=== PATIENT | female | born 1945 | race Caucasian/White ===

== ENCOUNTER → 2020-12-06 | Outpatient (CLI) | payer OTHER ==
[2020-12-06 12:00] LABS: Urine WBC None Seen /hpf (0 - 5)
[2020-12-06 12:07] LABS: Basophils # (auto) 0 10 ^3/uL (0-0.2); Basophils % (auto) 0.6 % (0.0-2.0); Eosinophils # (auto) 0.2 10 ^3/uL (0-0.8); Eosinophils % (auto) 2.5 % (0.0-7.0); Hematocrit 39.6 % (36.0-46.0); Hemoglobin 13.8 g/dL (12.2-16.2); Lymphocytes # (auto) 2.4 10 ^3/uL (0.4-5.4); Lymphocytes % (auto) 36.7 % (10.0-50.0); Mean Corpuscular Hemoglobin 32.6 pg (28.0-32.0); Mean Corpuscular Hgb Conc. 34.9 g/dL (32.0-36.0); Mean Corpuscular Volume 93.5 fL (80.0-100.0); Monocytes # (auto) 0.5 10 ^3/uL (0-1.3); Monocytes % (auto) 7.4 % (0.0-12.0); Neutrophils # (auto) 3.5 10 ^3/uL (1.6-8.6); Neutrophils % (auto) 52.8 % (37.0-80.0); Nucleated Red Blood Cells % 0.1 %; Platelet Count (auto) 202 10^3/uL (140-450); Red Blood Cells 4.23 10^6/uL (4.0-5.20); Red Cell Distribution Width 12.6 % (11.8-14.3); White Blood Cell 6.7 10^3/uL (4.4-10.8)
[2020-12-06 12:26] LABS: Urine Bacteria NONE SEEN /hpf (None Seen); Urine Blood Negative /uL (Negative); Urine Specific Gravity 1.005 (1.001-1.035)
[2020-12-06 12:54] LABS: Albumin 3.9 g/dL (3.4-5.0); Calcium 9.6 mg/dL (8.5-10.1); Potassium 4.2 mmol/L (3.5-5.1)
[2020-12-06 13:00] LABS: BUN/Creatinine Ratio 30.4; Bilirubin, Total 0.6 mg/dL (0.2-1.0); Total Protein 7.9 g/dL (6.4-8.2)
== END | disposition home or self-care (01) ==
LOC: LAB 11:49
PROVIDERS: ATTEND Student in an Organized Health Care Education/Training Program
DX: I10 Essential (primary) hypertension (principal); Z12.11 Encounter for screening for malignant neoplasm of colon
CPT/HCPCS: 36415; 80053; 80061; 81001; 84443; 85025

== ENCOUNTER 2021-04-07 10:27 | Inpatient (IN) | payer OTHER ==
[~2021-04-07] VITALS: Ht 167.6 cm; Wt 82.5 kg
[2021-04-07] MEDS ORDERED: HYDROmorphone HCL 2 MG/ML VL IV ONE (12:30)
[2021-04-07] MEDS ORDERED: ONDANSETRON HCL 4 MG/2 ML VIAL IV ONE (12:30)
[2021-04-07] MEDS ORDERED: SODIUM CHLORIDE 0.9% 1,000 ML IV ONE (12:30)
[2021-04-07 13:12] LABS: Albumin 3.8 g/dL (3.4-5.0); Calcium 9.3 mg/dL (8.5-10.1); Magnesium 2.6 mg/dL (1.6-2.6); Potassium 4.1 mmol/L (3.5-5.1)
[2021-04-07 13:17] LABS: BUN/Creatinine Ratio 29.9; Bilirubin, Total 0.5 mg/dL (0.2-1.0); Total Protein 7.4 g/dL (6.4-8.2)
[2021-04-07] MEDS ORDERED: TEMAZEPAM 15 MG CAP PO PRN (13:30)
[2021-04-07] MEDS ORDERED: MORPHINE SULFATE INJECTION 2 MG/ML SYRG IV PRN (13:30)
[2021-04-07] MEDS ORDERED: NITROGLYCERIN 0.4 MG SL TAB SL PRN (13:30)
[2021-04-07] MEDS ORDERED: ONDANSETRON HCL 4 MG/2 ML VIAL IV PRN (13:30)
[2021-04-07] MEDS ORDERED: LACTULOSE 20Gm/30ML SOLN PO PRN (13:30)
[2021-04-07 13:42] LABS: Basophils # (auto) 0 10 ^3/uL (0-0.2); Basophils % (auto) 0.2 % (0.0-2.0); Eosinophils # (auto) 0 10 ^3/uL (0-0.8); Eosinophils % (auto) 0.1 % (0.0-7.0); Hematocrit 40.7 % (36.0-46.0); Hemoglobin 13.8 g/dL (12.2-16.2); Lymphocytes # (auto) 1.2 10 ^3/uL (0.4-5.4); Lymphocytes % (auto) 5.6 % (10.0-50.0); Mean Corpuscular Hemoglobin 31.1 pg (28.0-32.0); Mean Corpuscular Hgb Conc. 33.9 g/dL (32.0-36.0); Mean Corpuscular Volume 91.7 fL (80.0-100.0); Monocytes # (auto) 0.8 10 ^3/uL (0-1.3); Neutrophils # (auto) 18.9 10 ^3/uL (1.6-8.6); Neutrophils % (auto) 90.1 % (37.0-80.0); Red Blood Cells 4.44 10^6/uL (4.0-5.20); Red Cell Distribution Width 12.6 % (11.8-14.3)
[2021-04-07 13:54] LABS: Partial Thromboplastin Time 22.8 sec (23.0-31.2)
[2021-04-07 14:08] LABS: Urine Amorphous Crystal FEW /hpf (None Seen); Urine Bacteria NONE SEEN /hpf (None Seen); Urine Blood Negative /uL (Negative); Urine Mucus FEW (None Seen); Urine Specific Gravity 1.024 (1.001-1.035); Urine WBC 2 /hpf (0 - 5)
[2021-04-07] MEDS: SODIUM CHLORIDE 0.9% 1,000 ML IV SCH (14:50)
[2021-04-07] MEDS: traMADol HCL 50 MG TAB PO PRN ×2 (15:37→22:45)
[2021-04-07 17:00] VITALS: BP 160/68
[2021-04-07] MEDS ORDERED: QUIN20TA35 PO (18:41)
[2021-04-07] MEDS ORDERED: ATOR20TA PO (18:41)
[2021-04-07] MEDS ORDERED: CHOL200021 PO (18:41)
[2021-04-07 22:25] VITALS: BP 142/67
[2021-04-08] MEDS: SODIUM CHLORIDE 0.9% 1,000 ML IV SCH ×3 (02:47→20:10)
[2021-04-08 05:25] VITALS: BP 132/63
[2021-04-08] MEDS: traMADol HCL 50 MG TAB PO PRN ×2 (05:32→17:30)
[2021-04-08 09:00] VITALS: BP 143/58
[2021-04-08] MEDS: MORPHINE SULFATE INJECTION 2 MG/ML SYRG IV PRN (09:00)
[2021-04-08] MEDS: PANTOPRAZOLE 40 MG TAB PO SCH (10:00)
[2021-04-08 13:00] VITALS: BP 149/84
[2021-04-08 17:00] VITALS: BP 148/69
[2021-04-08 22:00] VITALS: BP 151/67
[2021-04-08] MEDS: ATORVASTATIN 20 MG TAB PO SCH (22:08)
[2021-04-09 05:00] VITALS: BP 160/74
[2021-04-09] MEDS: SODIUM CHLORIDE 0.9% 1,000 ML IV SCH ×2 (06:25→08:28)
[2021-04-09] MEDS: MORPHINE SULFATE INJECTION 2 MG/ML SYRG IV PRN ×2 (08:22→18:39)
[2021-04-09] MEDS: LACTATED RINGER'S 1,000 ML IV SCH ×3 (08:27→16:42)
[2021-04-09 08:40] LABS: Basophils # (auto) 0 10 ^3/uL (0-0.2); Basophils % (auto) 0.2 % (0.0-2.0); Eosinophils # (auto) 0.2 10 ^3/uL (0-0.8); Eosinophils % (auto) 1.6 % (0.0-7.0); Hematocrit 33.6 % (36.0-46.0); Hemoglobin 11.6 g/dL (12.2-16.2); Lymphocytes # (auto) 1.1 10 ^3/uL (0.4-5.4); Lymphocytes % (auto) 9.6 % (10.0-50.0); Mean Corpuscular Hemoglobin 31.7 pg (28.0-32.0); Mean Corpuscular Hgb Conc. 34.5 g/dL (32.0-36.0); Mean Corpuscular Volume 91.8 fL (80.0-100.0); Monocytes # (auto) 0.8 10 ^3/uL (0-1.3); Monocytes % (auto) 6.4 % (0.0-12.0); Neutrophils # (auto) 9.6 10 ^3/uL (1.6-8.6); Neutrophils % (auto) 82.2 % (37.0-80.0); Red Blood Cells 3.66 10^6/uL (4.0-5.20); Red Cell Distribution Width 12.5 % (11.8-14.3); White Blood Cell 11.7 10^3/uL (4.4-10.8)
[2021-04-09] MEDS: PANTOPRAZOLE 40 MG TAB PO SCH (08:42)
[2021-04-09] MEDS: LISINOPRIL 20 MG TAB PO SCH (08:42)
[2021-04-09] MEDS: CHOLECALCIFEROL (VITD3) 2,000 UNIT CAP/TAB PO SCH (08:42)
[2021-04-09 09:00] VITALS: BP 167/76
[2021-04-09] MEDS ORDERED: QUINAPRIL HCL 10 MG TAB PO SCH (10:00)
[2021-04-09] MEDS ORDERED: LISINOPRIL 10 MG TAB PO SCH (10:00)
[2021-04-09] MEDS ORDERED: ceFAZolin 1GM/50ML 100 ML IV ONE (11:54)
[2021-04-09] MEDS ORDERED: MIDAZOLAM HCL 2MG/2ML 2ml VIAL (1mg/ml) ONE (12:52)
[2021-04-09] MEDS ORDERED: fentaNYL CITRATE 100 MCG/2 ML VL ONE (12:52)
[2021-04-09] MEDS ORDERED: BUPIVACAINE 0.25% INJ 50ML VIAL ONE (14:00)
[2021-04-09] MEDS ORDERED: ONDANSETRON HCL 4 MG/2 ML VIAL IV PRN (14:30)
[2021-04-09] MEDS: ceFAZolin 1GM/50ML 50 ML IV SCH ×2 (15:37→20:12)
[2021-04-09 17:00] VITALS: BP 131/61
[2021-04-09] MEDS: FERROUS SULFATE 325mg EC TAB PO SCH (17:46)
[2021-04-09] MEDS: ATORVASTATIN 20 MG TAB PO SCH (20:55)
[2021-04-09] MEDS: traMADol HCL 50 MG TAB PO PRN (20:55)
[2021-04-09 22:00] VITALS: BP 116/47
[2021-04-10] MEDS: LACTATED RINGER'S 1,000 ML IV SCH (00:15)
[2021-04-10] MEDS: ceFAZolin 1GM/50ML 50 ML IV SCH (02:51)
[2021-04-10 05:00] VITALS: BP 129/57
[2021-04-10] MEDS: traMADol HCL 50 MG TAB PO PRN ×3 (06:06→21:26)
[2021-04-10 06:08] LABS: Hematocrit 26.7 % (36.0-46.0); Hemoglobin 9.3 g/dL (12.2-16.2)
[2021-04-10 06:25] LABS: Albumin 2.3 g/dL (3.4-5.0)
[2021-04-10 06:28] LABS: BUN/Creatinine Ratio 36.6; Bilirubin, Total 0.5 mg/dL (0.2-1.0)
[2021-04-10] MEDS: FERROUS SULFATE 325mg EC TAB PO SCH ×3 (08:05→18:00)
[2021-04-10 09:00] VITALS: BP 146/60
[2021-04-10] MEDS: PANTOPRAZOLE 40 MG TAB PO SCH (09:22)
[2021-04-10] MEDS: CHOLECALCIFEROL (VITD3) 2,000 UNIT CAP/TAB PO SCH (09:22)
[2021-04-10] MEDS: LISINOPRIL 20 MG TAB PO SCH (09:23)
[2021-04-10] MEDS ORDERED: MULTIPLE VITAMIN TAB PO SCH (10:00)
[2021-04-10] MEDS ORDERED: ENOXAPARIN SOD 40 MG/0.4 ML SYRINGE SC SCH (10:00)
[2021-04-10] MEDS: MORPHINE SULFATE INJECTION 2 MG/ML SYRG IV PRN (10:59)
[2021-04-10 12:57] VITALS: BP 105/51
[2021-04-10 17:00] VITALS: BP 130/74
[2021-04-10] MEDS: ATORVASTATIN 20 MG TAB PO SCH (21:25)
[2021-04-10 22:00] VITALS: BP 106/48
[2021-04-11 05:00] VITALS: BP 116/55
[2021-04-11] MEDS: traMADol HCL 50 MG TAB PO PRN (06:58)
[2021-04-11 07:27] LABS: Hemoglobin 8.7 g/dL (12.2-16.2)
[2021-04-11] MEDS: FERROUS SULFATE 325mg EC TAB PO SCH (08:00)
[2021-04-11 09:00] VITALS: BP 109/50
[2021-04-11] MEDS: LISINOPRIL 20 MG TAB PO SCH (09:44)
[2021-04-11 13:00] VITALS: BP 112/57
[2021-04-11 17:00] VITALS: BP 120/53
[2021-04-11] MEDS: ATORVASTATIN 20 MG TAB PO SCH (21:22)
[2021-04-11 22:00] VITALS: BP 118/52
[2021-04-12] VITALS (7 sets, daily range): BP systolic 110–122; BP diastolic 56–66
[2021-04-12 06:48] LABS: Hemoglobin 8.1 g/dL (12.2-16.2)
[2021-04-12 06:50] LABS: Hematocrit 22.6 % (36.0-46.0)
[2021-04-12] MEDS: LISINOPRIL 20 MG TAB PO SCH (09:48)
[2021-04-12] MEDS: traMADol HCL 50 MG TAB PO PRN ×2 (09:49→22:22)
[2021-04-12] MEDS: ACETAMINOPHEN 500 MG TAB PO PRN ×2 (13:16→22:21)
[2021-04-12] MEDS: ATORVASTATIN 20 MG TAB PO SCH (22:21)
[2021-04-13] VITALS (7 sets, daily range): BP systolic 95–136; BP diastolic 50–65
[2021-04-13] MEDS: ACETAMINOPHEN 500 MG TAB PO PRN ×2 (09:00→22:36)
[2021-04-13] MEDS: LISINOPRIL 20 MG TAB PO SCH (09:41)
[2021-04-13] MEDS: traMADol HCL 50 MG TAB PO PRN (10:46)
[2021-04-13] MEDS: ATORVASTATIN 20 MG TAB PO SCH (22:36)
[2021-04-14 05:00] VITALS: BP 120/61
[2021-04-14 09:00] VITALS: BP 142/53
[2021-04-14] MEDS: LISINOPRIL 20 MG TAB PO SCH (09:24)
[2021-04-14 09:48] VITALS: BP 142/53
[2021-04-14] MEDS: ACETAMINOPHEN 500 MG TAB PO PRN (11:17)
[2021-04-14 12:58] VITALS: BP 148/55
== END 2021-04-14 16:35 | DRG 481 ==
LOC: ER 10:27 → EDBD 10:27 → CENTRAL 13:23 → TELE-CENTR 17:59
PROVIDERS: ADMIT Internal Medicine; ATTEND Family Medicine
PROC: 0PS Upper Bones, Reposition (ICD-10-PCS; 2021-04-09)
PROC: 0QS634Z Reposition Right Upper Femur with Internal Fixation Device, Percutaneous Approach (ICD-10-PCS; principal; 2021-04-09 12:55)
DX: S72.141A Displaced intertrochanteric fracture of right femur, initial encounter for closed fracture (principal); S42.251A Displaced fracture of greater tuberosity of right humerus, initial encounter for closed fracture; I10 Essential (primary) hypertension; Z20.822 Contact with and (suspected) exposure to COVID-19; I27.21 Secondary pulmonary arterial hypertension; E78.00 Pure hypercholesterolemia, unspecified; M54.16 Radiculopathy, lumbar region; W01.0XXA Fall on same level from slipping, tripping and stumbling without subsequent striking against object, initial encounter; E78.5 Hyperlipidemia, unspecified; Z82.49 Family history of ischemic heart disease and other diseases of the circulatory system; Y93.89 Activity, other specified; Y92.89 Other specified places as the place of occurrence of the external cause; Y99.8 Other external cause status
CPT/HCPCS: 36415; 71045; 73030; 73502; 76000; 80053; 81001; 83735; 85014; 85018; 85025; 85610; 85730; 86850; 86900; 86901; 87426; 93005; 93306; 96361; 96374; 96375; 97110; 97116; 97163; 97530; A4565; C1713; G0378; J0690; J2250; J2405; J3490

== ENCOUNTER → 2021-12-03 | Outpatient (CLI) | payer OTHER ==
[~2021-12-03] MED LIST: ATOR20TA PO; CHOL200021 PO; QUIN20TA35 PO
[2021-12-03 10:37] LABS: Basophils # (auto) 0 10 ^3/uL (0-0.2); Basophils % (auto) 0.4 % (0.0-2.0); Eosinophils # (auto) 0.1 10 ^3/uL (0-0.8); Eosinophils % (auto) 1.8 % (0.0-7.0); Hematocrit 38.3 % (36.0-46.0); Hemoglobin 13.2 g/dL (12.2-16.2); Lymphocytes # (auto) 2.1 10 ^3/uL (0.4-5.4); Lymphocytes % (auto) 29.2 % (10.0-50.0); Mean Corpuscular Hemoglobin 31.6 pg (28.0-32.0); Mean Corpuscular Hgb Conc. 34.5 g/dL (32.0-36.0); Mean Corpuscular Volume 91.7 fL (80.0-100.0); Monocytes # (auto) 0.6 10 ^3/uL (0-1.3); Monocytes % (auto) 8.1 % (0.0-12.0); Neutrophils # (auto) 4.3 10 ^3/uL (1.6-8.6); Neutrophils % (auto) 60.5 % (37.0-80.0); Nucleated Red Blood Cells % 0.1 %; Red Blood Cells 4.18 10^6/uL (4.0-5.20); Red Cell Distribution Width 12.5 % (11.8-14.3); White Blood Cell 7.2 10^3/uL (4.4-10.8)
[2021-12-03 11:08] LABS: Urine Bacteria FEW /hpf (None Seen); Urine Blood Negative /uL (Negative); Urine Mucus FEW (None Seen); Urine WBC 4 /hpf (0 - 5)
[2021-12-03 12:58] LABS: Potassium 4.2 mmol/L (3.5-5.1)
[2021-12-03 13:39] LABS: Albumin 3.6 g/dL (3.4-5.0); Bilirubin, Total 0.6 mg/dL (0.2-1.0); Calcium 10.1 mg/dL (8.5-10.1)
== END | disposition home or self-care (01) ==
LOC: LAB 10:03
PROVIDERS: ATTEND Student in an Organized Health Care Education/Training Program
DX: E78.00 Pure hypercholesterolemia, unspecified (principal); I10 Essential (primary) hypertension
CPT/HCPCS: 36415; 80053; 80061; 81001; 85025

== ENCOUNTER 2022-05-06 09:15 | Day surgery (SDC) | payer OTHER ==
[2022-04-29 14:14] LABS: Basophils # (auto) 0.1 10 ^3/uL (0-0.2); Basophils % (auto) 0.8 % (0.0-2.0); Eosinophils # (auto) 0.1 10 ^3/uL (0-0.8); Eosinophils % (auto) 1.6 % (0.0-7.0); Hematocrit 40.5 % (36.0-46.0); Hemoglobin 13.4 g/dL (12.2-16.2); Lymphocytes # (auto) 2.4 10 ^3/uL (0.4-5.4); Lymphocytes % (auto) 32.6 % (10.0-50.0); Mean Corpuscular Hemoglobin 30.4 pg (28.0-32.0); Mean Corpuscular Hgb Conc. 33.1 g/dL (32.0-36.0); Mean Corpuscular Volume 91.8 fL (80.0-100.0); Monocytes # (auto) 0.4 10 ^3/uL (0-1.3); Monocytes % (auto) 6.1 % (0.0-12.0); Neutrophils # (auto) 4.4 10 ^3/uL (1.6-8.6); Neutrophils % (auto) 58.9 % (37.0-80.0); Red Blood Cells 4.41 10^6/uL (4.0-5.20); Red Cell Distribution Width 12.9 % (11.8-14.3); White Blood Cell 7.4 10^3/uL (4.4-10.8)
[2022-04-29 14:47] LABS: INR 0.94 (0.9-1.15); Partial Thromboplastin Time 25.6 sec (24.6-33.4)
[2022-04-29 14:49] LABS: Urine Bacteria NONE SEEN /hpf (None Seen); Urine Blood Negative /uL (Negative); Urine Mucus FEW (None Seen); Urine Specific Gravity 1.018 (1.001-1.035); Urine WBC 1 /hpf (0 - 5)
[2022-04-29 15:07] LABS: Potassium 3.9 mmol/L (3.5-5.1)
[2022-04-29 15:13] LABS: Albumin 3.7 g/dL (3.4-5.0); BUN/Creatinine Ratio 25.7; Bilirubin, Total 0.6 mg/dL (0.2-1.0); Calcium 9.3 mg/dL (8.5-10.1); Total Protein 7.2 g/dL (6.4-8.2)
[~2022-05-06] VITALS: Ht 167.6 cm; Wt 68.0 kg
[~2022-05-06 09:15] MED LIST changes: +GABA300C10 PO; +HYDR12.56 PO; +LISI20TA28 PO; -QUIN20TA35 PO
[2022-05-06] MEDS ORDERED: ceFAZolin 1GM/50ML 100 ML IV ONE (09:25)
[2022-05-06] MEDS ORDERED: GLYCOPYRROLATE 0.2 MG/ML 1ML VIAL ONE (10:01)
[2022-05-06] MEDS ORDERED: ONDANSETRON HCL 4 MG/2 ML VIAL ONE (10:01)
[2022-05-06] MEDS ORDERED: fentaNYL CITRATE 100 MCG/2 ML VL ONE (10:01)
[2022-05-06] MEDS ORDERED: PROPOFOL 10 MG/ML 20 ML IV ONE (10:01)
[2022-05-06] MEDS ORDERED: MIDAZOLAM HCL 2MG/2ML 2ml VIAL (1mg/ml) ONE (10:01)
[2022-05-06] MEDS ORDERED: KETAMINE HCL 10 ML ONE (10:01)
[2022-05-06] MEDS ORDERED: EPINEPHrine HCL 1 MG/1 ML AMP ONE (10:46)
[2022-05-06] MEDS ORDERED: BUPIVACAINE 0.5% P/F INJ 10 ML VIAL ONE (10:46)
[2022-05-06] MEDS ORDERED: LIDOCAINE HCL (LOCAL ANESTH.) 0.5 % 50ML MDV IJ ONE (11:17)
[2022-05-06] MEDS ORDERED: LIDOCAINE 1%HCL (LOCAL ANESTH) 10 ML MDV ONE (11:17)
[2022-05-06] MEDS ORDERED: VANCOMYCIN HCL 1000 MG VL ONE (11:24)
[2022-05-06] MEDS ORDERED: ONDANSETRON HCL 4 MG/2 ML VIAL IV PRN (12:00)
[2022-05-06] MEDS ORDERED: HYDROmorphone HCL 2 MG/ML VL/or syr IV PRN (12:00)
[2022-05-06 13:05] VITALS: BP 136/70
== END 2022-05-06 13:45 | disposition home or self-care (01) ==
LOC: SUR 09:15
PROVIDERS: ATTEND Orthopaedic Surgery Adult Reconstructive Orthopaedic Surgery
DX: S72.001D Fracture of unspecified part of neck of right femur, subsequent encounter for closed fracture with routine healing (principal); I10 Essential (primary) hypertension; M19.90 Unspecified osteoarthritis, unspecified site; Z98.41 Cataract extraction status, right eye; Z98.42 Cataract extraction status, left eye; Z98.890 Other specified postprocedural states; Z79.899 Other long term (current) drug therapy; Z20.822 Contact with and (suspected) exposure to COVID-19; Z82.49 Family history of ischemic heart disease and other diseases of the circulatory system; X58.XXXD Exposure to other specified factors, subsequent encounter
CPT/HCPCS: 20680; 36415; 76000; 80053; 81001; 85025; 85610; 85730; C1713; J0171; J0690; J2001; J2250; J2405; J2704; J3010; J3370; J3490; U0003

== ENCOUNTER → 2022-12-02 | Outpatient (CLI) | payer OTHER ==
[2022-12-02 11:52] LABS: Basophils # (auto) 0 10 ^3/uL (0-0.2); Basophils % (auto) 0.5 % (0.0-2.0); Eosinophils # (auto) 0.1 10 ^3/uL (0-0.8); Eosinophils % (auto) 1.8 % (0.0-7.0); Hematocrit 38.7 % (36.0-46.0); Hemoglobin 13.6 g/dL (12.2-16.2); Lymphocytes # (auto) 2.4 10 ^3/uL (0.4-5.4); Lymphocytes % (auto) 31.4 % (10.0-50.0); Mean Corpuscular Hgb Conc. 35.1 g/dL (32.0-36.0); Mean Corpuscular Volume 88.3 fL (80.0-100.0); Monocytes # (auto) 0.6 10 ^3/uL (0-1.3); Monocytes % (auto) 7.7 % (0.0-12.0); Neutrophils # (auto) 4.6 10 ^3/uL (1.6-8.6); Neutrophils % (auto) 58.6 % (37.0-80.0); Nucleated Red Blood Cells % 0.1 %; Red Blood Cells 4.39 10^6/uL (4.0-5.20); Red Cell Distribution Width 12.8 % (11.8-14.3); White Blood Cell 7.8 10^3/uL (4.4-10.8)
[2022-12-02 12:37] LABS: Urine Bacteria NONE SEEN /hpf (None Seen); Urine Blood Negative /uL (Negative); Urine WBC <1 /hpf (0 - 5)
[2022-12-02 12:41] LABS: Albumin 3.6 g/dL (3.4-5.0); BUN/Creatinine Ratio 31.6; Calcium 9.4 mg/dL (8.5-10.1); Potassium 4.1 mmol/L (3.5-5.1)
[2022-12-02 12:46] LABS: Bilirubin, Total 0.5 mg/dL (0.2-1.0)
== END | disposition home or self-care (01) ==
LOC: LAB 11:36
PROVIDERS: ATTEND Student in an Organized Health Care Education/Training Program
DX: E78.5 Hyperlipidemia, unspecified (principal); R03.0 Elevated blood-pressure reading, without diagnosis of hypertension
CPT/HCPCS: 36415; 80053; 80061; 81001; 84443; 85025

== ENCOUNTER → 2023-07-30 | Outpatient (CLI) | payer OTHER ==
[~2023-07-30] MED LIST changes: +GABA-1250 PO; -GABA300C10 PO; -HYDR12.56 PO; +HYDR12.59 PO; -LISI20TA28 PO; +LISI20TA56 PO
[2023-07-30 11:44] LABS: Basophils # (auto) 0 10 ^3/uL (0-0.2); Basophils % (auto) 0.5 % (0.0-2.0); Eosinophils # (auto) 0.1 10 ^3/uL (0-0.8); Eosinophils % (auto) 1.3 % (0.0-7.0); Hematocrit 40.6 % (36.0-46.0); Hemoglobin 13.6 g/dL (12.2-16.2); Lymphocytes % (auto) 29.5 % (10.0-50.0); Mean Corpuscular Hemoglobin 31.5 pg (28.0-32.0); Mean Corpuscular Hgb Conc. 33.6 g/dL (32.0-36.0); Mean Corpuscular Volume 93.7 fL (80.0-100.0); Monocytes # (auto) 0.5 10 ^3/uL (0-1.3); Monocytes % (auto) 7.7 % (0.0-12.0); Neutrophils # (auto) 4.2 10 ^3/uL (1.6-8.6); Red Blood Cells 4.33 10^6/uL (4.0-5.20); Red Cell Distribution Width 13.1 % (11.8-14.3); White Blood Cell 6.9 10^3/uL (4.4-10.8)
[2023-07-30 12:26] LABS: Alanine Aminotransferase 14 U/L (7-40); Albumin 4.6 g/dL (3.2-4.8); Alkaline Phosphatase 97 U/L (46-116); Anion Gap 7 (5-15); Aspartate Aminotransferase 25 U/L (13-40); BUN/Creatinine Ratio 16.5 (10.0-20.0); Blood Urea Nitrogen 13 mg/dL (9-23); Calcium 10.2 mg/dL (8.5-10.1); Carbon Dioxide 28 mmol/L (20-30); Chloride 101 mmol/L (98-107); Glucose 97 mg/dL (74-106); Potassium 4.2 mmol/L (3.5-5.1); Sodium 136 mmol/L (136-145)
[2023-07-30 12:27] LABS: Bilirubin, Total 0.5 mg/dL (0.2-1.0); Phosphorus 3.4 mg/dL (2.4-5.1); Total Protein 7.1 g/dL (5.7-8.2)
[2023-07-31 13:07] LABS: Albumin 3.7 g/dL (2.9-4.4); Alpha-1-Globulin 0.2 g/dL (0.0-0.4); Alpha-2-Globulin 0.8 g/dL (0.4-1.0); Globulin Total 3.3 g/dL (2.2-3.9)
== END | disposition home or self-care (01) ==
LOC: LAB 11:13
PROVIDERS: ATTEND Internal Medicine Rheumatology
DX: M81.0 Age-related osteoporosis without current pathological fracture (principal)
CPT/HCPCS: 36415; 80053; 82306; 83970; 84100; 84155; 84165; 84443; 85025

== ENCOUNTER → 2023-12-03 | Outpatient (CLI) | payer OTHER ==
[2023-12-03 11:44] LABS: Basophils # (auto) 0.1 10 ^3/uL (0-0.2); Basophils % (auto) 0.7 % (0.0-2.0); Eosinophils # (auto) 0.2 10 ^3/uL (0-0.8); Hemoglobin 12.9 g/dL (12.2-16.2); Lymphocytes # (auto) 1.7 10 ^3/uL (0.4-5.4); Lymphocytes % (auto) 22.2 % (10.0-50.0); Mean Corpuscular Hemoglobin 30.4 pg (28.0-32.0); Mean Corpuscular Volume 92.3 fL (80.0-100.0); Monocytes # (auto) 0.5 10 ^3/uL (0-1.3); Monocytes % (auto) 6.5 % (0.0-12.0); Neutrophils # (auto) 5.4 10 ^3/uL (1.6-8.6); Neutrophils % (auto) 68.6 % (37.0-80.0); Red Blood Cells 4.23 10^6/uL (4.0-5.20); Red Cell Distribution Width 12.8 % (11.8-14.3); White Blood Cell 7.8 10^3/uL (4.4-10.8)
[2023-12-03 11:54] LABS: Urine Bacteria NONE SEEN /hpf (None Seen); Urine Blood Negative /uL (Negative); Urine Clarity Clear (Clear); Urine Color Colorless (Yellow); Urine Protein, UAD Negative (Negative); Urine Specific Gravity 1.005 (1.001-1.035); Urine Urobilinogen Normal (Negative); Urine WBC <1 /hpf (0 - 5)
[2023-12-03 12:15] LABS: Alanine Aminotransferase 14 U/L (7-40); Albumin 4.3 g/dL (3.2-4.8); Alkaline Phosphatase 82 U/L (46-116); Anion Gap 5 (5-15); Aspartate Aminotransferase 24 U/L (13-40); BUN/Creatinine Ratio 19.2 (10.0-20.0); Bilirubin, Total 0.7 mg/dL (0.2-1.0); Blood Urea Nitrogen 14 mg/dL (9-23); Calcium 9.2 mg/dL (8.5-10.1); Carbon Dioxide 28 mmol/L (20-30); Chloride 105 mmol/L (98-107); Cholesterol 129 mg/dL (< 200); Glucose 85 mg/dL (74-106); HDL Cholesterol 44 mg/dL (40-59); LDL Cholesterol 66 mg/dL (< 100); Potassium 4.6 mmol/L (3.5-5.1); Sodium 138 mmol/L (136-145); Total Protein 6.6 g/dL (5.7-8.2); Triglycerides 110 mg/dL (< 150)
== END | disposition home or self-care (01) ==
LOC: LAB 11:29
PROVIDERS: ATTEND Student in an Organized Health Care Education/Training Program
DX: I10 Essential (primary) hypertension (principal); E55.9 Vitamin D deficiency, unspecified; E78.5 Hyperlipidemia, unspecified
CPT/HCPCS: 36415; 80053; 80061; 81001; 82306; 83036; 84443; 85025

== ENCOUNTER → 2024-04-27 | Outpatient (CLI) | payer OTHER ==
[2024-04-27 10:27] LABS: Basophils # (auto) 0 10 ^3/uL (0-0.2); Basophils % (auto) 0.6 % (0.0-2.0); Eosinophils # (auto) 0.1 10 ^3/uL (0-0.8); Hematocrit 38.2 % (36.0-46.0); Lymphocytes # (auto) 2.2 10 ^3/uL (0.4-5.4); Lymphocytes % (auto) 29.7 % (10.0-50.0); Mean Corpuscular Hemoglobin 31.6 pg (28.0-32.0); Mean Corpuscular Hgb Conc. 34.1 g/dL (32.0-36.0); Mean Corpuscular Volume 92.8 fL (80.0-100.0); Monocytes # (auto) 0.6 10 ^3/uL (0-1.3); Monocytes % (auto) 7.6 % (0.0-12.0); Neutrophils # (auto) 4.5 10 ^3/uL (1.6-8.6); Neutrophils % (auto) 60.1 % (37.0-80.0); Red Blood Cells 4.11 10^6/uL (4.0-5.20); Red Cell Distribution Width 13.4 % (11.8-14.3); White Blood Cell 7.4 10^3/uL (4.4-10.8)
[2024-04-27 11:36] LABS: Alanine Aminotransferase 14 U/L (7-40); Albumin 4.1 g/dL (3.2-4.8); Alkaline Phosphatase 59 U/L (46-116); Anion Gap 4 (5-15); Aspartate Aminotransferase 16 U/L (13-40); Bilirubin, Total 0.6 mg/dL (0.2-1.0); Blood Urea Nitrogen 17 mg/dL (9-23); Calcium 9.4 mg/dL (8.7-10.4); Carbon Dioxide 29 mmol/L (20-30); Chloride 104 mmol/L (98-107); Glucose 90 mg/dL (74-106); Phosphorus 2.5 mg/dL (2.4-5.1); Potassium 4.1 mmol/L (3.5-5.1); Sodium 137 mmol/L (136-145); Total Protein 6.4 g/dL (5.7-8.2)
== END | disposition home or self-care (01) ==
LOC: LAB 10:03
PROVIDERS: ATTEND Internal Medicine Rheumatology
DX: M81.0 Age-related osteoporosis without current pathological fracture (principal)
CPT/HCPCS: 36415; 80053; 82306; 82330; 83970; 84100; 85025

== ENCOUNTER → 2024-09-27 | Outpatient (CLI) | payer OTHER ==
[2024-09-27 13:00] LABS: Basophils # (auto) 0 10 ^3/uL (0-0.2); Basophils % (auto) 0.7 % (0.0-2.0); Eosinophils # (auto) 0.1 10 ^3/uL (0-0.8); Eosinophils % (auto) 1.9 % (0.0-7.0); Hematocrit 37.5 % (36.0-46.0); Hemoglobin 12.7 g/dL (12.2-16.2); Lymphocytes # (auto) 2.3 10 ^3/uL (0.4-5.4); Lymphocytes % (auto) 31.4 % (10.0-50.0); Mean Corpuscular Hemoglobin 31.5 pg (28.0-32.0); Mean Corpuscular Hgb Conc. 33.8 g/dL (32.0-36.0); Mean Corpuscular Volume 93.3 fL (80.0-100.0); Monocytes # (auto) 0.5 10 ^3/uL (0-1.3); Monocytes % (auto) 7.3 % (0.0-12.0); Neutrophils # (auto) 4.2 10 ^3/uL (1.6-8.6); Neutrophils % (auto) 58.7 % (37.0-80.0); Nucleated Red Blood Cells % 0.1 %; Platelet Count (auto) 198 10^3/uL (140-450); Red Blood Cells 4.02 10^6/uL (4.0-5.20); Red Cell Distribution Width 13.2 % (11.8-14.3); White Blood Cell 7.2 10^3/uL (4.4-10.8)
[2024-09-27 13:46] LABS: Alanine Aminotransferase 16 U/L (7-40); Alkaline Phosphatase 70 U/L (46-116); Anion Gap 8 (5-15); BUN/Creatinine Ratio 20.2 (10.0-20.0); Blood Urea Nitrogen 17 mg/dL (9-23); Calcium 9.7 mg/dL (8.7-10.4); Carbon Dioxide 25 mmol/L (20-31); Chloride 103 mmol/L (98-107); Glucose 83 mg/dL (74-106); Sodium 136 mmol/L (136-145)
[2024-09-27 13:47] LABS: Albumin 4.1 g/dL (3.2-4.8); Aspartate Aminotransferase 23 U/L (13-40)
[2024-09-27 13:48] LABS: Bilirubin, Total 0.7 mg/dL (0.2-1.0); Total Protein 6.5 g/dL (5.7-8.2)
== END | disposition home or self-care (01) ==
LOC: LAB 12:26
PROVIDERS: ATTEND Internal Medicine Rheumatology
DX: M81.0 Age-related osteoporosis without current pathological fracture (principal)
CPT/HCPCS: 36415; 80053; 82330; 85025

== ENCOUNTER → 2024-11-23 | Outpatient (CLI) | payer OTHER ==
[2024-11-23 12:17] LABS: Urine Bacteria None Seen /hpf (None Seen)
[2024-11-23 12:39] LABS: Basophils # (auto) 0.1 10 ^3/uL (0-0.2); Basophils % (auto) 0.6 % (0.0-2.0); Eosinophils # (auto) 0.2 10 ^3/uL (0-0.8); Eosinophils % (auto) 2.7 % (0.0-7.0); Hematocrit 38.1 % (36.0-46.0); Hemoglobin 13.1 g/dL (12.2-16.2); Lymphocytes # (auto) 2.7 10 ^3/uL (0.4-5.4); Lymphocytes % (auto) 32.8 % (10.0-50.0); Mean Corpuscular Hemoglobin 31.8 pg (28.0-32.0); Mean Corpuscular Hgb Conc. 34.4 g/dL (32.0-36.0); Mean Corpuscular Volume 92.2 fL (80.0-100.0); Monocytes # (auto) 0.6 10 ^3/uL (0-1.3); Neutrophils # (auto) 4.7 10 ^3/uL (1.6-8.6); Neutrophils % (auto) 56.9 % (37.0-80.0); Platelet Count (auto) 203 10^3/uL (140-450); Red Blood Cells 4.13 10^6/uL (4.0-5.20); Red Cell Distribution Width 12.8 % (11.8-14.3); White Blood Cell 8.2 10^3/uL (4.4-10.8)
[2024-11-23 13:00] LABS: Urine Blood Negative /uL (Negative); Urine Clarity Clear (Clear); Urine Color Colorless (Yellow); Urine Protein, UAD Negative (Negative); Urine Specific Gravity 1.008 (1.001-1.035); Urine Squamous Epithelial Cell None Seen /hpf (<5); Urine Urobilinogen Normal (Negative); Urine WBC < 1 /HPF (0-5)
[2024-11-23 13:10] LABS: Alanine Aminotransferase 16 U/L (7-40); Albumin 4.4 g/dL (3.2-4.8); Anion Gap 6 (5-15); Aspartate Aminotransferase 21 U/L (13-40); BUN/Creatinine Ratio 18.1 (10.0-20.0); Bilirubin, Total 0.8 mg/dL (0.2-1.0); Blood Urea Nitrogen 15 mg/dL (9-23); Carbon Dioxide 28 mmol/L (20-31); Chloride 102 mmol/L (98-107); Cholesterol 147 mg/dL (< 200); Glucose 87 mg/dL (74-106); HDL Cholesterol 51 mg/dL (40-59); LDL Cholesterol 77 mg/dL (< 100); Potassium 4.4 mmol/L (3.5-5.1); Sodium 136 mmol/L (136-145); Total Protein 6.8 g/dL (5.7-8.2); Triglycerides 111 mg/dL (< 150)
[2024-11-23 13:45] LABS: Alkaline Phosphatase 65 U/L (46-116)
== END | disposition home or self-care (01) ==
LOC: LAB 12:01
PROVIDERS: ATTEND Student in an Organized Health Care Education/Training Program
DX: I10 Essential (primary) hypertension (principal); E55.9 Vitamin D deficiency, unspecified; E78.5 Hyperlipidemia, unspecified
CPT/HCPCS: 36415; 80053; 80061; 81001; 82306; 84443; 85025

== ENCOUNTER 2025-04-05 09:42 | Outpatient (CLI) | payer OTHER ==
[2025-04-05] MEDS ORDERED: IOHEXOL 300 MG/ML 100ML BOTTLE IJ ONE (09:56)
[2025-04-05] MEDS ORDERED: LIDOCAINE 2%HCL (LOCAL ANESTH.) INJ 10ml MDV ONE (09:56)
[2025-04-05] MEDS ORDERED: BUPIVACAINE HCL 0.25% P/F 10 ML VIAL ONE (09:56)
--- NOTE | 2025-04-05 11:33 | DVH ---
PROCEDURE: Joint injection Procedural Personnel Attending physician(s): Luis Juarez Fellow physician(s): None Resident physician(s): None Advanced practice provider(s): None Pre-procedure diagnosis: Right hip pain Post-procedure diagnosis: Same Indication: Pain Additional clinical history: None Complications: No immediate complications. IMPRESSION: Image-guided diagnostic and therapeutic right hip joint injection. Plan: The patient tolerated the procedure well. PROCEDURE SUMMARY: - Right hip joint injection with fluoroscopic guidance - Additional procedure(s): None PROCEDURE DETAILS: Pre-procedure Consent: Informed consent for the procedure including risks, benefits and alternatives was obtained a nd time-out was performed prior to the procedure. Preparation: The site was prepared and draped using maximal sterile barrier technique including cutan eous antisepsis. Anesthesia/sedation Level of anesthesia/sedation: No sedation Anesthesia/sedation administered by: Not applicable Total intra-service sedation time (minutes): Not applicable. Joint injection The patient was positioned supine. Local anesthesia was administered. Under image guidance, a needle was advanced into the joint space, with intra-articular position confirmed with arthrography. Injecti on was performed. Needle: 22 gauge, 3.5 inch Contrast administered: 1 mL of Omnipaque 350 Anesthetic administered: 4 mL of 0.25% bupivacaine, 5 mL of 2% lidocaine Medication administered: 80 mg of methylprednisolone Findings: Appropriate contrast opacification of the right hip joint Closure The needle was removed and hemostasis was achieved with manual compression. A sterile bandage was keke lied. Contrast Contrast agent: Omnipaque 350 Contrast volume (mL): 1 Radiation Dose Fluoroscopy time (minutes): 0.01 Reference air kerma (mGy): 2 Kerma area product (Not provided by imaging equipment) Additional Details Additional description of procedure: None Registry event: V/3/g Device used: None Equipment details: None Unique Device Identifiers: Not available Specimens removed: None Estimated blood loss (mL): Less than 10 Standardized report: [email or web address] Attestation Signer name: Luis Juarez I attest that I was present for the entire procedure. I reviewed the stored images and agree with the report as written.
== END 2025-04-05 17:00 | disposition home or self-care (01) ==
LOC: XYW 09:42
PROVIDERS: ATTEND Orthopaedic Surgery Adult Reconstructive Orthopaedic Surgery
DX: M46.1 Sacroiliitis, not elsewhere classified (principal); Z79.899 Other long term (current) drug therapy; Z82.49 Family history of ischemic heart disease and other diseases of the circulatory system
CPT/HCPCS: 20610; 77002; J2003; J3490; Q9967; 73501

== ENCOUNTER → 2025-05-31 | Outpatient (CLI) | payer OTHER ==
[2025-05-31 13:07] LABS: Hematocrit 39.0 % (36.0-46.0); Hemoglobin 13.7 g/dL (12.2-16.2); Mean Corpuscular Hemoglobin 32.1 pg (28.0-32.0); Mean Corpuscular Volume 91.2 fL (80.0-100.0); Nucleated Red Blood Cells % 0.0 %
[2025-05-31 14:25] LABS: Alanine Aminotransferase 15 U/L (7-40); Albumin 4.4 g/dL (3.2-4.8); Alkaline Phosphatase 64 U/L (46-116); Anion Gap 9 (5-15); BUN/Creatinine Ratio 14.7 (10.0-20.0); Blood Urea Nitrogen 11 mg/dL (9-23); Calcium 9.3 mg/dL (8.7-10.4); Carbon Dioxide 25 mmol/L (20-31); Chloride 100 mmol/L (98-107); Glucose 88 mg/dL (74-106); Potassium 4.1 mmol/L (3.5-5.1); Total Protein 6.9 g/dL (5.7-8.2)
[2025-05-31 14:26] LABS: Bilirubin, Total 0.9 mg/dL (0.2-1.0)
[2025-05-31 14:27] LABS: Sodium 134 mmol/L (136-145)
== END | disposition home or self-care (01) ==
LOC: LAB 12:38
PROVIDERS: ATTEND Internal Medicine Rheumatology
DX: M81.0 Age-related osteoporosis without current pathological fracture (principal)
CPT/HCPCS: 36415; 80053; 82306; 82330; 84100; 85025

== ENCOUNTER → 2025-06-28 | Outpatient (CLI) | payer OTHER ==
[2025-06-28 11:51] LABS: Hematocrit 38.6 % (36.0-46.0); Hemoglobin 13.0 g/dL (12.2-16.2); Mean Corpuscular Hemoglobin 31.0 pg (28.0-32.0); Mean Corpuscular Volume 92.2 fL (80.0-100.0); Nucleated Red Blood Cells % 0.0 %
[2025-06-28 11:52] LABS: Urine Protein, UAD Negative (Negative)
[2025-06-28 12:18] LABS: Alanine Aminotransferase < 9 U/L (7-40); Albumin 4.2 g/dL (3.2-4.8); Alkaline Phosphatase 63 U/L (46-116); Anion Gap 9 (5-15); BUN/Creatinine Ratio 15.7 (10.0-20.0); Bilirubin, Total 0.4 mg/dL (0.2-1.0); Blood Urea Nitrogen 11 mg/dL (9-23); Calcium 8.8 mg/dL (8.7-10.4); Carbon Dioxide 26 mmol/L (20-31); Chloride 100 mmol/L (98-107); Cholesterol 156 mg/dL (< 200); Glucose 85 mg/dL (74-106); HDL Cholesterol 45 mg/dL (40-59); Potassium 4.3 mmol/L (3.5-5.1); Sodium 135 mmol/L (136-145); Total Protein 6.8 g/dL (5.7-8.2); Triglycerides 144 mg/dL (< 150)
== END | disposition home or self-care (01) ==
LOC: LAB 11:15
PROVIDERS: ATTEND Student in an Organized Health Care Education/Training Program
DX: I10 Essential (primary) hypertension (principal); E78.5 Hyperlipidemia, unspecified; E55.9 Vitamin D deficiency, unspecified; R73.9 Hyperglycemia, unspecified
CPT/HCPCS: 36415; 80053; 80061; 81001; 82306; 83036; 84443; 85025